=== PATIENT | female | born 1995 | race Caucasian/White ===

== ENCOUNTER 2019-04-09 11:08 | Day surgery (SDC) | payer BC ==
[~2019-04-09 11:08] MED LIST: Buffered Lidocaine 1% SYRIN* 1 ML/SYRINGE INTRADERM ONE; Lactated Ringers 1000 ML Bag* 1,000 ML IV SCH; Sodium Citrate/Citric Acid* 15 ML UDC PO ONE
[2019-04-09] MEDS ORDERED: Sodium Citrate/Citric Acid* 15 ML UDC ONE (11:32)
[2019-04-09] MEDS ORDERED: Buffered Lidocaine 1% SYRIN* 1 ML/SYRINGE INTRADERM ONE (11:32)
[2019-04-09] MEDS ORDERED: Naloxone* 0.4 MG/ML 1 ML VIAL IV PRN (12:08)
[2019-04-09] MEDS ORDERED: Triamcinolone Acetonide* 40 MG/ML 1 ML VIAL ONE (12:09)
[2019-04-09] MEDS ORDERED: Lidocaine 2% w/ EPI 1:200,000* 20 ML SDV VIAL ONE (12:09)
[2019-04-09] MEDS ORDERED: Oxymetazoline 0.05% NASAL SPR* 15 ML BTL ONE (12:09)
[2019-04-09] MEDS ORDERED: Lidocaine 2% PF * 5 ML VIAL ONE (12:21)
[2019-04-09] MEDS ORDERED: Midazolam* 1 MG/ML 2 ML VIAL (2 MG) ONE (12:21)
[2019-04-09] MEDS ORDERED: Propofol* 10 MG/ML 20 ML BTL ONE (12:21)
[2019-04-09] MEDS ORDERED: fentaNYL* 50 MCG/ML 2 ML VIAL (100 MCG VIAL) ONE ×3 (12:21→13:33)
[2019-04-09] MEDS ORDERED: Gelfoam 12-7 ADSORBABL SPONGE* 1 EA SPONGE ONE (12:59)
[2019-04-09] MEDS: fentaNYL* 50 MCG/ML 2 ML VIAL (100 MCG VIAL) IV PRN ×4 (13:24→13:49)
[2019-04-09] MEDS ORDERED: HYDROcodone/ACETAMIN 5-325 MG* 1 TAB ONE ×2 (13:44→15:23)
[2019-04-09 14:59] VITALS: BP 121/66
--- NOTE | 2019-04-09 15:08 | OP ---
DATE OF OPERATION: 04/09/19 - [facility] DATE OF : 89 SURGEON: Jaswinder Robertson M.D. PRE-OP DIAGNOSES: Chronic sinusitis, facial pressure and pain, on examination had deviated septum, hypertrophied turbinates. POST-OP DIAGNOSES: Chronic sinusitis, facial pressure and pain, on examination had deviated septum, hypertrophied turbinates. OPERATIVE PROCEDURE: Bilateral videoendoscopic maxillary antrostomy, septoplasty and SMR of turbinates. BRIEF HISTORY: This 23-year-old female with a longstanding history of chronic symptoms suggestive of sinusitis elected for surgical management which included endoscopic sinus surgery, septoplasty, and SMR of turbinates. DESCRIPTION OF PROCEDURE: The patient was taken to the operating room, general anesthesia was given, the patient intubated with an LMA. Nose was decongested with Afrin-placed pledgets. A 0-degree telescope and 30-degree telescope and other endoscopic sinus surgery instruments including microshaver were utilized. Initially, we turned our attention to the right side. The uncinate process was infiltrated with 2% lidocaine with epinephrine, then carefully peeled out anteriorly. Antrostomy identified it was quite narrowed, then enlarged. There was an accessory ostium and this was connected. The margins of the antrostomy were cleaned up of any excessive mucosa. Similarly on the left side, the uncinate process was peeled out anteriorly and the antrostomy enlarged slightly. Copious irrigation of both antrum was carried out. The area between the middle turbinate and lateral nasal wall was then packed with Surgifoam. We then turned our attention to the septum. Left hemitransfixion was created. Mucoperichondrial flap was elevated. The quadrangular cartilage was disarticulated along the vomer ethmoidal complex and then the large septal spur on the left side was removed. Mucosa was replaced in place and sealed with Gelfoam. Submucosal resection was carried out using electrocautery bipolar type. Once this was adequately done on both sides, the patient was awakened, sent to recovery room in stable condition. COUNTS: Instrument and sponge counts correct. BLOOD LOSS: Minimal. [id number]/[facility] #: [id number] [facility]
[2019-04-09] MEDS ORDERED: DiMENhydriNATE IV* 50 MG/ML VIAL ONE (15:11)
== END 2019-04-09 17:19 | disposition home or self-care (01) ==
LOC: OR 11:08
PROVIDERS: ATTEND Otolaryngology
DX: J34.2 Deviated nasal septum (principal); J31.0 Chronic rhinitis; J32.9 Chronic sinusitis, unspecified; J34.3 Hypertrophy of nasal turbinates; R09.81 Nasal congestion; Z88.0 Allergy status to penicillin
CPT/HCPCS: 81025; A9270-GY; J1240; J2250; J2704; J3010; J3301